=== PATIENT | female | born 1995 | race Caucasian/White ===

== ENCOUNTER 2020-11-20 22:04 | Emergency (ER) | payer BC ==
[~2020-11-20] VITALS: Ht 167.6 cm; Wt 59.0 kg
--- NOTE | 2020-11-20 22:30 | NUR ---
PATIENT WAS MSE BY DR KANDI FINN IN ROOM 04A.
[2020-11-20 22:52] LABS: CREATININE 0.8 mg/dL (0.6-1.3); POTASSIUM 3.6 mmol/L (3.5-5.1)
[2020-11-20 22:56] LABS: HEMATOCRIT 35.8 % (31.2-41.9); MEAN CORPUSCULAR HEMOGLOBIN 30.3 uug (24.7-32.8); MEAN CORPUSCULAR VOLUME 89.3 fL (75.5-95.3); PLATELET COUNT (AUTO) 252 K/uL (179-408)
--- NOTE | 2020-11-21 00:05 | NUR ---
DR CHAU SPOKE WITH PATIENT MADE HER AWARE OF TEST RESULTS WILL DC HOME.
--- NOTE | 2020-11-21 00:13 | NUR ---
Patient discharged to home in stable condition. Written and verbal after care instructions given. Patient verbalizes understanding of instructions. Stressed follow up or return to ER for worsening s/s.
[2020-11-21 00:15] VITALS: BP 110/70
== END 2020-11-21 00:16 | disposition home or self-care (01) ==
LOC: ER 22:07
DX: M79.661 Pain in right lower leg (principal); K90.41 Non-celiac gluten sensitivity; Z88.1 Allergy status to other antibiotic agents
CPT/HCPCS: 36415; 83735; 85025